=== PATIENT | male | born 1995 | race Two or more races ===

== ENCOUNTER 2021-04-14 15:13 | Emergency (ER) | payer SELFPAY ==
[~2021-04-14] VITALS: Ht 157.5 cm; Wt 63.5 kg
[2021-04-14 15:20] VITALS: BP 121/71
== END 2021-04-14 16:23 | disposition left against medical advice (07) ==
LOC: ER 15:13
DX: M79.602 Pain in left arm (principal); Z53.21 Procedure and treatment not carried out due to patient leaving prior to being seen by health care provider